=== PATIENT | male | born 1970 | race Caucasian/White ===

== ENCOUNTER 2024-09-04 08:33 | Day surgery (SDC) | payer OTHER, BC ==
[~2024-09-04] VITALS: Ht 180.3 cm; Wt 159.1 kg
[~2024-09-04 08:33] MED LIST: ALLEGRA ALLERG180 MG PO; APETEX LIQ790 MG/15 SL; CEFAZOLIN SODIUM 3 GM/30 ML SYR IV SCH; COZAAR100 MG PO; FISH OIL 1,001000 MG PO; IBLOOD GLUCOSE TEST STRIP 1 EA TEST VI PRN; LACTATED RINGER'S 1,000 ML IV SCH; LIDOCAINE HCL 1% 5 ML SDV INJ ONE; PROTONIX20 MG PO; VITAMIN D325 MC4 PO
[2024-09-04 09:00] VITALS: BP 147/77
[2024-09-04] MEDS ORDERED: FLONASE ALLERG9.9 ML NAS (09:03)
[2024-09-04] MEDS ORDERED: SODIUM CHLORIDE 0.9% 20 ML IV ONE (09:04)
[2024-09-04] MEDS ORDERED: DEXAMETHASONE SOD PHOS 4 MG/ML VIAL ONE (09:04)
[2024-09-04] MEDS ORDERED: LIDOCAINE HCL 2% 5 ML SDV ONE ×2 (09:04→10:13)
[2024-09-04] MEDS ORDERED: dexmedeTOMIDine HCl 200 MCG/2 ML VIAL ONE (09:04)
[2024-09-04] MEDS ORDERED: MIDAZOLAM HCL 2 MG/2 ML VIAL ONE (09:04)
[2024-09-04] MEDS ORDERED: Ropivacaine HCl 0.5% 30 ML VIAL ONE (09:04)
[2024-09-04] MEDS ORDERED: CLARITHROMYCIN500 MG PO (09:04)
[2024-09-04] MEDS ORDERED: propofoL 200 MG/20 ML VIAL ONE ×2 (09:04→10:13)
[2024-09-04] MEDS ORDERED: ondansetron HCL 4 MG/2 ML VIAL ONE (10:13)
[2024-09-04] MEDS ORDERED: HYDROCODONE/ACETA 7.5/325 TAB PO PRN (11:15)
[2024-09-04] MEDS ORDERED: fentaNYL citrate 100 MCG/2 ML VIAL ONE (11:35)
[2024-09-04] MEDS ORDERED: ACETAMINOPHEN 1,000 MG/100 ML VIAL ONE (11:36)
[2024-09-04] MEDS ORDERED: LACTATED RINGER'S 1,000 ML IV ONE (11:40)
[2024-09-04] MEDS ORDERED: KETOROLAC TROMETHAMINE 30 MG/ML VIAL ONE (11:55)
[2024-09-04] MEDS ORDERED: CELECOXIB200 MG PO (12:06)
[2024-09-04] MEDS ORDERED: HYDROCODON-ACE1 EA11 PO (12:06)
[2024-09-04] MEDS ORDERED: HYDROmorphone HCL 1 MG/ML SYR IV PRN (12:15)
[2024-09-04] MEDS ORDERED: ondansetron HCL 4 MG/2 ML VIAL IV PRN (12:15)
[2024-09-04] MEDS ORDERED: droPERidol 5 MG/2 ML VIAL IV PRN (12:15)
[2024-09-04] MEDS ORDERED: IBLOOD GLUCOSE TEST STRIP 1 EA TEST VI PRN (12:15)
[2024-09-04] MEDS ORDERED: fentaNYL citrate 50 MCG/ML SDV IV PRN (12:15)
[2024-09-04] MEDS ORDERED: PROCHLORPERAZINE EDISYLATE 10 MG/2 ML VIAL IV PRN (12:15)
[2024-09-04] MEDS ORDERED: NALOXONE HCL 0.4 MG SYR IV PRN (12:15)
--- NOTE | 2024-09-04 12:27 | NUR ---
09/04/24 1227 Virginie Sears 1212 PT TO PACU SLEEPING O2 VIA MASK FOGGING NOTED IN MASK. ICE PLACED ON RT ELBOW.
[2024-09-04 12:50] VITALS: BP 132/73
--- NOTE | 2024-09-04 12:56 | OR ---
[facility] [address] [place], [place] [address] Signed DATE OF OPERATION: 09/04/2024 SURGEON: Farida Sears MD PREOPERATIVE DIAGNOSIS: Chronic lateral epicondylitis, right. POSTOPERATIVE DIAGNOSIS: Chronic lateral epicondylitis, right. PROCEDURE PERFORMED: Right lateral epicondylar debridement . BIOLOGICAL SCIENCES PROFESSOR: Chela Keller PA-C. Chela was present and critical for all portions of procedure. ANESTHESIA: General. TOURNIQUET TIME: 29 minutes. BRIEF HISTORY: Tanner is a 54-year-old gentleman, who has been battling chronic epicondylitis for close to a year now. Nonoperative treatment had failed to control his symptoms. Risks and benefits of operative treatment were discussed with him, he elected to proceed. DESCRIPTION OF PROCEDURE: Once consent was obtained, he was taken to the operating room. After adequate anesthesia, he was placed on the operating room table with a hand table. The arm was prepped and draped in the standard sterile fashion. A sterile proximal arm tourniquet was then placed and the arm was exsanguinated with an Esmarch bandage. Tourniquet was inflated to 200 mmHg. The lateral condyle was then located and a 2 inch incision was centered over this in a curvilinear fashion. This was then carried through the skin and subcutaneous tissue and down to the fascia. The fascia was divided longitudinally and the muscle was elevated off the lateral epicondyle. Several areas of mucinous degeneration of the tendon were encountered and these were all removed sharply with the [place] and rongeur. The underlying bone was in good shape. He did have some bleeding posteriorly. The epicondyle was then scraped with a [place] and then shingled using a Electronically Signed By: FARIDA SEARS MD 09/04/24 1256 PATIENT NAME: TANNER MOLINA OPERATIVE REPORT DATE OF : 74 REPORT #: [id number] PHYSICIAN: FARIDA SEARS MD PCP: ANNA HASKINS MD REPORT IS CONFIDENTIAL AND NOT TO BE RELEASED WITHOUT AUTHORIZATION [facility] [address] [facility] [place] [address] Signed quarter-inch osteotome. The wound was then copiously irrigated and the tendon was repaired back to itself using 2-0 Monocryl, subcutaneous tissue with 3-0 Monocryl and the skin with 3-0 Monocryl. The wound was then sealed with LiquiBand and Steri-Strips and dressed with Allevyn and a posterior splint. The patient tolerated the procedure well. All sponge, needle, and instrument counts were correct. Farida Sears MD BA/MODL /[id number] Copies: ~ Electronically Signed By: FARIDA SEARS MD 09/04/24 1256 PATIENT NAME: TANNER MOLINA OPERATIVE REPORT DATE OF : 74 REPORT #: [id number] PHYSICIAN: FARIDA SEARS MD PCP: ANNA HASKINS MD REPORT IS CONFIDENTIAL AND NOT TO BE RELEASED WITHOUT AUTHORIZATION
--- NOTE | 2024-09-04 12:57 | NUR ---
PT ARRIVES TO DS FROM PACU VIA STRETCHER. PT IS A&O AND ASKING APPROPRIATE QUESTIONS AT THIS TIME. PT REPORTS NO PAIN AND COMPLETE NUMBNESS OF RT EXTREMITY, SKIN IS PINK/WARM/DRY. PT TOLERATING SIPS OF WATER AT THIS TIME W/OUT REPORT OF NAUSEA. VS TAKEN. NOT AT BEDSIDE AT THIS TIME. REPORT RECEIVED FROM TOM YAP. DRESSING C/D/I, OBSERVED W/TOM YAP. CALL LIGHT WITHIN REACH, PT REPORTS NO FURTHER NEEDS OR QUESTIONS AT THIS TIME.
--- NOTE | 2024-09-04 13:30 | NUR ---
IN PT ROOM FOR PAIN ASSESSMENT. PT STATES SURGICAL EXTREMITY REMAINS NUMB AT THIS TIME AND NO PAIN. PT ABLE TO SLIGHTLY WIGGLE FINGERS. SKIN IS PINK/WARM/DRY. DRESSING REMAINS C/D/I, SLING PLACED. VS TAKEN. PT STATES URGE TO URINE VOID. PT TO RESTROOM @1340 FOR UNMEASURABLE URINE VOID. PT GAIT IS STEADY AND PT REPORTS NO NAUSEA/DIZZINESS POST AMBULATION. PT GETTING DRESSED AT THIS TIME W/'S ASSISTANCE.
[2024-09-04 13:37] VITALS: BP 142/80
--- NOTE | 2024-09-04 13:50 | NUR ---
IN PT ROOM FOR DC EDUCATION AND DC OF IV. PT STATES VERBAL UNDERSTANDING OF DC EDUCATION AT THIS TIME AND NO FURTHER QUESTIONS. PT OFF OF UNIT VIA WC TO PASSENGER SIDE OF VEHICLE. ALL BELONGINGS IN PT POSSESSION. ICE PACK PROVIDED. PT STATES NO FURTHER NEEDS OR QUESTIONS AT THIS TIME.
[2024-09-04] MEDS ORDERED: SEVOFLURANE 250 ML BTL INH ONE (16:54)
[2024-09-04] MEDS ORDERED: CELECOXIB 200 MG CAP PO SCH (17:00)
== END 2024-09-04 14:05 | disposition home or self-care (01) ==
LOC: DS 08:33
PROVIDERS: ATTEND Specialist
DX: M77.11 Lateral epicondylitis, right elbow (principal); I10 Essential (primary) hypertension; K21.9 Gastro-esophageal reflux disease without esophagitis; Z79.899 Other long term (current) drug therapy
CPT/HCPCS: 01712; 64415; 76942; J0131; J0690; J1100; J1885; J2003; J2250; J2405; J2704; J2795; J3010; J7121